=== PATIENT | male | born 1955 | race Caucasian/White ===

== ENCOUNTER 2016-08-14 19:03 | Emergency (ER) | payer BC ==
[~2016-08-14] VITALS: Ht 180.3 cm; Wt 93.4 kg
[2016-08-14 19:11] VITALS: BP 160/92
--- NOTE | 2016-08-14 20:56 | NUR ---
AMBULATED TO ER BED 6
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
[2016-08-14] MEDS ORDERED: LIDOCAINE 1% 500 MG/50 ML VIAL INJ ONE (21:25)
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
[2016-08-14] MEDS ORDERED: BACITRACIN OINT 500 UNITS/GM PKT TP ONE (22:52)
[2016-08-14 23:25] VITALS: BP 142/79
--- NOTE | 2016-08-14 23:25 | NUR ---
Patient discharged with v/s stable. Written and verbal after care instructions given and explained. Patient alert, oriented and verbalized understanding of instructions. Ambulatory with steady gait. All questions addressed prior to discharge. ID band removed. Patient advised to follow up with PMD. Rx of MOTRIN AND BACTRIM given. Patient educated on indication of medication including possible reaction and side effects. Opportunity to ask questions provided and answered.
== END 2016-08-14 23:25 | disposition home or self-care (01) ==
LOC: MED 19:15
DX: S81.812A Laceration without foreign body, left lower leg, initial encounter (principal); W22.09XA Striking against other stationary object, initial encounter; Y93.89 Activity, other specified; Y92.89 Other specified places as the place of occurrence of the external cause; Y99.8 Other external cause status
CPT/HCPCS: 12002; 73590; 90471; 90715; 99284; J2001